=== PATIENT | female | born 1965 | race Hispanic/Latino ===

== ENCOUNTER 2019-06-19 23:57 | Emergency (ER) | payer OTHER ==
[~2019-06-19] VITALS: Ht 149.9 cm; Wt 108.9 kg
--- OUTSIDE RECORDS SUMMARY | 2019-06-20 00:02 | XMS REPORT ---
Author Author [facility] Address Unknown Phone Unavailable Care Team Providers Care Fire Extinguisher Sprinkler Inspector Name Role Phone QUIANA LENZ Unavailable Unavailable Payers Payer Name Policy Type Policy Number Effective Date Expiration Date Problems This patient has no known problems. Allergies, Adverse Reactions, Alerts Allergy Name Allergy Type Status Severity Reaction(s) Onset Date Inactive Date Treating Clinician Comments No Known Contrast Allergies DA Active U 2003-11-22 00:00:00 No Known Drug Allergies DA Active U 2003-11-22 00:00:00 No Known Food Allergies DA Active U 2003-11-22 00:00:00 No Known Other Allergies DA Active U 2003-11-22 00:00:00 Medications This patient has no known medications. Encounters Start Date/Time End Date/Time Encounter Type Admission Type Attending Clinicians Care Facility Care Department Encounter ID 2019-04-09 19:32:00 2019-04-09 15:28:00 Inpatient E [facility] [id number] Results Test Description Test Time Test Comments Text Results Atomic Results Result Comments TISSUE EXAM 2016-11-10 13:28:00 Surgical Pathology Report Case: [id number] Authorizing Provider: Camron Lenz MD Collected: 11/03/2016 1330 Ord ering Location: [facility] Received: 11/03/2016 1530 PERIOPERATIVE SERVICES Pathologist: Kahlil Griffin MD Specimens: A) - Aortic Valve, AORTIC VALVE LEAFLETS B) - Aorta, AORTIC WALL 8. HEART, AORTIC VALVE, VALVULECTOMY:NODULAR CALCIFIC ATHEROSCLEROTIC THICKENINGB. AORTA, DESIGNATED "WALL", ANEURYSMECTOMY:SEVERE CYSTIC MEDIAL MUCOID DEGENERATION 54091; [id number]; [id number], ASA. Aortic valve leafletsB. Aortic wallSpecimen A: Received in saline labeled "aortic valve" are irregular, spain-white to yellow-guthrie, rubbery portions of cardiac valve measuring 4.0 x 4.0 x 1.0 cm in aggregate. Sectioning reveals dense calcification. Health Service Worker sections are submitted in cassette A1 for decalcification.Specimen B: Received in saline labeled "aorta", description "aortic wall" is a 2.5 x 2.0 x 0.2 cm, spain-white to yellow-guthrie, irregular, rubbery portion of fibroelastic soft tissue. Sectioning reveals no discrete masses. Health Service Worker sections are submitted in cassette B1. [place]/Cem Leal, performed CBC W/PLT COUNT & AUTO DIFFERENTIAL 2016-11-10 11:39:00 WHITE BLOOD CELL COUNT (BEAKER) (test byth=959) 9.3 K/ L 3.5-10.5 RED BLOOD CELL COUNT (BEAKER) (test inhl=754) 2.61 M/ L 3.93-5.22 HEMOGLOBIN (BEAKER) (test wbmk=864) 8.1 GM/DL 11.2-15.7 HEMATOCRIT (BEAKER) (test eovc=590) 25.4 % 34.1-44.9 MEAN CORPUSCULAR VOLUME (BEAKER) (test nsju=279) 97.3 fL 79.4-94.8 MEAN CORPUSCULAR HEMOGLOBIN (BEAKER) (test qepn=905) 31.0 pg 25.6-32.2 MEAN CORPUSCULAR HEMOGLOBIN CONC (BEAKER) (test ehef=176) 31.9 GM/DL 32.2-35.5 RED CELL DISTRIBUTION WIDTH (BEAKER) (test ybgj=406) 14.3 % 11.7-14.4 PLATELET COUNT (BEAKER) (test eexf=150) 315 K/CU MM 150-450 MEAN PLATELET VOLUME (BEAKER) (test hqvu=536) 11.4 fL 9.4-12.3 NUCLEATED RED BLOOD CELLS (BEAKER) (test bugo=854) 1 /100 WBC 0-0 NEUTROPHILS RELATIVE PERCENT (BEAKER) (test itgm=027) 67 % LYMPHOCYTES RELATIVE PERCENT (BEAKER) (test qlvy=501) 22 % MONOCYTES RELATIVE PERCENT (BEAKER) (test kqhm=788) 7 % EOSINOPHILS RELATIVE PERCENT (BEAKER) (test zhir=531) 3 % BASOPHILS RELATIVE PERCENT (BEAKER) (test kezp=532) 0 % NEUTROPHILS ABSOLUTE COUNT (BEAKER) (test zitm=579) 6.19 K/ L 1.56-6.13 LYMPHOCYTES ABSOLUTE COUNT (BEAKER) (test auzi=117) 2.09 K/ L 1.18-3.74 MONOCYTES ABSOLUTE COUNT (BEAKER) (test hvlu=963) 0.61 K/ L 0.24-0.36 EOSINOPHILS ABSOLUTE COUNT (BEAKER) (test krnz=607) 0.27 K/ L 0.04-0.36 BASOPHILS ABSOLUTE COUNT (BEAKER) (test iwdu=483) 0.03 K/ L 0.01-0.08 IMMATURE GRANULOCYTES-RELATIVE PERCENT (BEAKER) (test ggos=5676) 1 % 0-1 [id number] 07:06:00* Test Item Value Reference Range Comments FERRITIN (BEAKER) (test xlwz=837) 156 ng/mL 5-275 Effective 02/27/2014: Reference Range ChangeNew: Male 5-275 Previous: Male 22-322 Female 5-275 Female 10-291 VITAMIN B12 AND FOLATE 2016-11-10 07:06:00* Test Item Value Reference Range Comments VITAMIN B12 (BEAKER) (test vjoj=228) 285 pg/mL 213-816 FOLATE (BEAKER) (test ozwa=647) 11.3 ng/mL >=7.0 Effective 02/27/2014: Folate Reference Range ChangeNew: >=7.0 Previous: >=5.4 [id number] 06:44:00* Test Item Value Reference Range Comments MAGNESIUM (BEAKER) (test okrp=833) 2.1 mg/dL 1.6-2.6 BASIC METABOLIC [id number] 06:44:00* Test Item Value Reference Range Comments SODIUM (BEAKER) (test lxsc=264) 137 meq/L 136-145 POTASSIUM (BEAKER) (test blek=730) 3.7 meq/L 3.5-5.1 CHLORIDE (BEAKER) (test knes=418) 103 meq/L 98-107 CO2 (BEAKER) (test vsrr=503) 27 meq/L 22-29 BLOOD UREA NITROGEN (BEAKER) (test nayw=408) 9 mg/dL 7-21 CREATININE (BEAKER) (test yhew=355) 0.67 mg/dL 0.57-1.25 GLUCOSE RANDOM (BEAKER) (test rzvn=917) 99 mg/dL 70-105 CALCIUM (BEAKER) (test nsli=864) 8.5 mg/dL 8.4-10.2 EGFR (BEAKER) (test lvco=5157) 92 mL/min/1.73 sq m ESTIMATED GFR IS NOT ACCURATE CREATININE CLEARANCE IN PREDICTING GLOMERULAR FILTRATION RATE. ESTIMATED GFR IS NOT APPLICABLE FOR DIALYSIS PATIENTS. IRON, [id number] 06:40:00* Test Item Value Reference Range Comments IRON (BEAKER) (test azav=171) 39 ug/dL 40-160 IRON, TIBC, % SAT. (WITHOUT FERRITIN)2016-11-10 06:40:00* Test Item Value Reference Range Comments IRON (BEAKER) (test ktzv=739) 39 ug/dL 40-160 TOTAL IRON BINDING CAPACITY (BEAKER) (test qmef=979) 304 ug/dL 250-450 IRON % SATURATION (2) (BEAKER) (test ypji=1592) 13 % 20-55 PROTHROMBIN [id number] 06:16:00* Test Item Value Reference Range Comments PROTIME (BEAKER) (test rlpv=014) 23.0 seconds 11.7-14.7 INR (BEAKER) (test yerb=606) 2.0 <=5.9 RECOMMENDED COUMADIN/WARFARIN INR THERAPY RANGESSTANDARD DOSE: 2.0 - 3.0 Inclu hilda: PROPHYLAXIS for venous thrombosis, systemic embolization; TREATMENT for cassi ous thrombosis and/or pulmonary embolus.HIGH RISK: Target INR is 2.5-3.5 for pat ients with mechanical heart valves.While on warfarin.CBC W/PLT COUNT & AUTO [id number] 12:36:00* Test Item Value Reference Range Comments WHITE BLOOD CELL COUNT (BEAKER) (test vnio=402) 8.1 K/ L 3.5-10.5 RED BLOOD CELL COUNT (BEAKER) (test lidw=260) 2.43 M/ L 3.93-5.22 HEMOGLOBIN (BEAKER) (test qzfz=172) 7.6 GM/DL 11.2-15.7 HEMATOCRIT (BEAKER) (test xjnn=391) 23.5 % 34.1-44.9 MEAN CORPUSCULAR VOLUME (BEAKER) (test qthx=434) 96.7 fL 79.4-94.8 MEAN CORPUSCULAR HEMOGLOBIN (BEAKER) (test shqo=767) 31.3 pg 25.6-32.2 MEAN CORPUSCULAR HEMOGLOBIN CONC (BEAKER) (test fxyv=364) 32.3 GM/DL 32.2-35.5 RED CELL DISTRIBUTION WIDTH (BEAKER) (test fomf=221) 14.2 % 11.7-14.4 PLATELET COUNT (BEAKER) (test vhzn=919) 261 K/CU MM 150-450 MEAN PLATELET VOLUME (BEAKER) (test qrym=114) 12.0 fL 9.4-12.3 NUCLEATED RED BLOOD CELLS (BEAKER) (test izmf=375) 1 /100 WBC 0-0 IMMATURE GRANULOCYTES-RELATIVE PERCENT (BEAKER) (test esec=0391) 1 % 0-1 (MANUAL DIFFERENTIAL)2016-11-09 12:36:00* Test Item Value Reference Range Comments NEUTROPHILS - REL (DIFF) (BEAKER) (test zoro=9221) 64 % LYMPHOCYTES - REL (DIFF) (BEAKER) (test jupj=5046) 24 % MONOCYTES - REL (DIFF) (BEAKER) (test asoy=4283) 8 % EOSINOPHILS - REL (DIFF) (BEAKER) (test prsi=7250) 3 % BASOPHILS - REL (DIFF) (BEAKER) (test lbec=5638) 1 % NEUTROPHILS - ABS (DIFF) (BEAKER) (test vpsv=8715) 5.18 K/ L 1.80-8.00 LYMPHOCYTES - ABS (DIFF) (BEAKER) (test ihhj=0892) 1.94 K/ L 1.48-4.50 MONOCYTES - ABS (DIFF) (BEAKER) (test wloq=4649) 0.65 K/ L 0.00-1.30 EOSINOPHILS - ABS (DIFF) (BEAKER) (test xycl=8054) 0.24 K/ L 0.00-0.50 BASOPHILS - ABS (DIFF) (BEAKER) (test zppd=7081) 0.08 K/ L 0.00-0.20 TOTAL COUNTED (BEAKER) (test iluk=0900) 100 WBC MORPHOLOGY (BEAKER) (test hvme=463) Normal LARGE PLT(BEAKER) (test trmw=4017) Present POLYCHROMATOPHILLIC RBCS(BEAKER) (test pcnu=145) 1+ few [id number] 07:33:00* Test Item Value Reference Range Comments PHOSPHORUS (BEAKER) (test tirp=537) 3.7 mg/dL 2.3-4.7 [id number] 07:33:00* Test Item Value Reference Range Comments MAGNESIUM (BEAKER) (test kmwo=834) 2.0 mg/dL 1.6-2.6 BASIC METABOLIC [id number] 07:33:00* Test Item Value Reference Range Comments SODIUM (BEAKER) (test uenj=461) 139 meq/L 136-145 POTASSIUM (BEAKER) (test uyjm=034) 3.6 meq/L 3.5-5.1 CHLORIDE (BEAKER) (test nuer=600) 104 meq/L 98-107 CO2 (BEAKER) (test svwy=941) 28 meq/L 22-29 BLOOD UREA NITROGEN (BEAKER) (test nend=902) 9 mg/dL 7-21 CREATININE (BEAKER) (test bpkv=937) 0.65 mg/dL 0.57-1.25 GLUCOSE RANDOM (BEAKER) (test vdcy=945) 153 mg/dL 70-105 CALCIUM (BEAKER) (test gupx=322) 8.8 mg/dL 8.4-10.2 EGFR (BEAKER) (test rtoi=3398) 95 mL/min/1.73 sq m ESTIMATED GFR IS NOT ACCURATE CREATININE CLEARANCE IN PREDICTING GLOMERULAR FILTRATION RATE. ESTIMATED GFR IS NOT APPLICABLE FOR DIALYSIS PATIENTS. POCT-GLUCOSE [id number] 07:15:00* Test Item Value Reference Range Comments POC-GLUCOSE METER (BEAKER) (test lqeh=2222) 106 mg/dL 70-110 TESTED AT [address] [address] B-TYPE NATRIURETIC FACTOR (BNP)2016-11-09 06:39:00* Test Item Value Reference Range Comments B-TYPE NATRIURETIC PEPTIDE (BEAKER) (test izql=839) 160 pg/mL 0-100 PROTHROMBIN [id number] 05:53:00* Test Item Value Reference Range Comments PROTIME (BEAKER) (test smuo=468) 20.1 seconds 11.7-14.7 INR (BEAKER) (test fjbu=161) 1.7 <=5.9 RECOMMENDED COUMADIN/WARFARIN INR THERAPY RANGESSTANDARD DOSE: 2.0 - 3.0 Inclu hilda: PROPHYLAXIS for venous thrombosis, systemic embolization; TREATMENT for cassi ous thrombosis and/or pulmonary embolus.HIGH RISK: Target INR is 2.5-3.5 for pat ients with mechanical heart valves.While on warfarin.POCT-GLUCOSE METER 2016-11-08 20:47:00* Test Item Value Reference Range Comments POC-GLUCOSE METER (BEAKER) (test ycsc=1721) 115 mg/dL 70-110 TESTED AT [address] [address] POCT-GLUCOSE [id number] 16:20:00* Test Item Value Reference Range Comments POC-GLUCOSE METER (BEAKER) (test gbzu=7228) 110 mg/dL 70-110 TESTED AT [address] [address] POCT-GLUCOSE [id number] 11:10:00* Test Item Value Reference Range Comments POC-GLUCOSE METER (BEAKER) (test gscs=9628) 150 mg/dL 70-110 TESTED AT [address] [address] BASIC METABOLIC [id number] 10:05:00* Test Item Value Reference Range Comments SODIUM (BEAKER) (test kamb=161) 137 meq/L 136-145 POTASSIUM (BEAKER) (test qavg=193) 3.6 meq/L 3.5-5.1 CHLORIDE (BEAKER) (test uszh=800) 101 meq/L 98-107 CO2 (BEAKER) (test flxw=784) 29 meq/L 22-29 BLOOD UREA NITROGEN (BEAKER) (test mpgy=113) 9 mg/dL 7-21 CREATININE (BEAKER) (test nocu=530) 0.68 mg/dL 0.57-1.25 GLUCOSE RANDOM (BEAKER) (test xkbs=629) 125 mg/dL 70-105 CALCIUM (BEAKER) (test imem=282) 8.8 mg/dL 8.4-10.2 EGFR (BEAKER) (test mzhv=6957) 91 mL/min/1.73 sq m ESTIMATED GFR IS NOT ACCURATE CREATININE CLEARANCE IN PREDICTING GLOMERULAR FILTRATION RATE. ESTIMATED GFR IS NOT APPLICABLE FOR DIALYSIS PATIENTS. POCT-GLUCOSE [id number] 08:21:00* Test Item Value Reference Range Comments POC-GLUCOSE METER (BEAKER) (test ehnd=9590) 136 mg/dL 70-110 TESTED AT [facility] [address] [facility] [address] POCT-GLUCOSE [id number] 08:21:00* Test Item Value Reference Range Comments POC-GLUCOSE METER (BEAKER) (test ynsl=7924) 100 mg/dL 70-110 TESTED AT [address] [address] PROTHROMBIN [id number] 07:30:00* Test Item Value Reference Range Comments PROTIME (BEAKER) (test pjiy=129) 18.1 seconds 11.7-14.7 INR (BEAKER) (test xnct=914) 1.5 <=5.9 RECOMMENDED COUMADIN/WARFARIN INR THERAPY RANGESSTANDARD DOSE: 2.0 - 3.0 Inclu hilda: PROPHYLAXIS for venous thrombosis, systemic embolization; TREATMENT for cassi ous thrombosis and/or pulmonary embolus.HIGH RISK: Target INR is 2.5-3.5 for pat ients with mechanical heart valves.POCT-GLUCOSE [id number] 07:23:00* Test Item Value Reference Range Comments POC-GLUCOSE METER (BEAKER) (test vjfw=3278) 115 mg/dL 70-110 TESTED AT [address] [address] CBC W/PLT COUNT & AUTO [id number] 14:45:00* Test Item Value Reference Range Comments WHITE BLOOD CELL COUNT (BEAKER) (test rzcj=309) 8.5 K/ L 3.5-10.5 RED BLOOD CELL COUNT (BEAKER) (test wpvi=009) 2.85 M/ L 3.93-5.22 HEMOGLOBIN (BEAKER) (test fblx=832) 8.9 GM/DL 11.2-15.7 HEMATOCRIT (BEAKER) (test eglg=905) 27.0 % 34.1-44.9 MEAN CORPUSCULAR VOLUME (BEAKER) (test mmrs=033) 94.7 fL 79.4-94.8 MEAN CORPUSCULAR HEMOGLOBIN (BEAKER) (test jrca=351) 31.2 pg 25.6-32.2 MEAN CORPUSCULAR HEMOGLOBIN CONC (BEAKER) (test bwql=961) 33.0 GM/DL 32.2-35.5 RED CELL DISTRIBUTION WIDTH (BEAKER) (test xldc=963) 13.9 % 11.7-14.4 PLATELET COUNT (BEAKER) (test tsgb=352) 203 K/CU MM 150-450 MEAN PLATELET VOLUME (BEAKER) (test eidi=091) 11.4 fL 9.4-12.3 NUCLEATED RED BLOOD CELLS (BEAKER) (test rgue=017) 1 /100 WBC 0-0 NEUTROPHILS RELATIVE PERCENT (BEAKER) (test qnya=784) 73 % LYMPHOCYTES RELATIVE PERCENT (BEAKER) (test baim=242) 17 % MONOCYTES RELATIVE PERCENT (BEAKER) (test frnv=984) 7 % EOSINOPHILS RELATIVE PERCENT (BEAKER) (test ahyk=722) 1 % BASOPHILS RELATIVE PERCENT (BEAKER) (test lvfz=733) 1 % NEUTROPHILS ABSOLUTE COUNT (BEAKER) (test cwta=010) 6.24 K/ L 1.56-6.13 LYMPHOCYTES ABSOLUTE COUNT (BEAKER) (test wrfa=004) 1.48 K/ L 1.18-3.74 MONOCYTES ABSOLUTE COUNT (BEAKER) (test tvtj=796) 0.60 K/ L 0.24-0.36 EOSINOPHILS ABSOLUTE COUNT (BEAKER) (test ockn=126) 0.12 K/ L 0.04-0.36 BASOPHILS ABSOLUTE COUNT (BEAKER) (test ljlb=624) 0.05 K/ L 0.01-0.08 IMMATURE GRANULOCYTES-RELATIVE PERCENT (BEAKER) (test qbsw=9291) 1 % 0-1 POCT-GLUCOSE [id number] 11:46:00* Test Item Value Reference Range Comments POC-GLUCOSE METER (BEAKER) (test zkfb=8581) 149 mg/dL 70-110 TESTED AT [facility] [address] [facility] [address] B-TYPE NATRIURETIC FACTOR (BNP)2016-11-07 10:21:00* Test Item Value Reference Range Comments B-TYPE NATRIURETIC PEPTIDE (BEAKER) (test jxii=884) 189 pg/mL 0-100 [id number] 10:19:00* Test Item Value Reference Range Comments PHOSPHORUS (BEAKER) (test hrjp=234) 2.5 mg/dL 2.3-4.7 [id number] 10:19:00* Test Item Value Reference Range Comments MAGNESIUM (BEAKER) (test mfon=298) 2.2 mg/dL 1.6-2.6 BASIC METABOLIC [id number] 10:19:00* Test Item Value Reference Range Comments SODIUM (BEAKER) (test cntc=365) 137 meq/L 136-145 POTASSIUM (BEAKER) (test jqqd=867) 3.5 meq/L 3.5-5.1 CHLORIDE (BEAKER) (test hfem=443) 101 meq/L 98-107 CO2 (BEAKER) (test yuzq=012) 29 meq/L 22-29 BLOOD UREA NITROGEN (BEAKER) (test znmb=556) 8 mg/dL 7-21 CREATININE (BEAKER) (test rboc=511) 0.68 mg/dL 0.57-1.25 GLUCOSE RANDOM (BEAKER) (test chok=104) 118 mg/dL 70-105 CALCIUM (BEAKER) (test hnrs=686) 8.7 mg/dL 8.4-10.2 EGFR (BEAKER) (test lyzz=6732) 91 mL/min/1.73 sq m ESTIMATED GFR IS NOT ACCURATE CREATININE CLEARANCE IN PREDICTING GLOMERULAR FILTRATION RATE. ESTIMATED GFR IS NOT APPLICABLE FOR DIALYSIS PATIENTS. POCT-GLUCOSE [id number] 07:13:00* Test Item Value Reference Range Comments POC-GLUCOSE METER (BEAKER) (test hegh=7728) 114 mg/dL 70-110 TESTED AT [address] [address] POCT-GLUCOSE [id number] 23:33:00* Test Item Value Reference Range Comments POC-GLUCOSE METER (BEAKER) (test azgc=3739) 109 mg/dL 70-110 TESTED AT [address] [address] POCT-GLUCOSE [id number] 17:42:00* Test Item Value Reference Range Comments POC-GLUCOSE METER (BEAKER) (test pqbu=6154) 145 mg/dL 70-110 TESTED AT [address] [address] POCT-GLUCOSE [id number] 13:26:00* Test Item Value Reference Range Comments POC-GLUCOSE METER (BEAKER) (test guxo=0895) 123 mg/dL 70-110 TESTED AT [facility] [address] [facility] [address] PROTHROMBIN [id number] 11:40:00* Test Item Value Reference Range Comments PROTIME (BEAKER) (test heud=759) 15.3 seconds 11.7-14.7 INR (BEAKER) (test wowi=324) 1.2 <=5.9 RECOMMENDED COUMADIN/WARFARIN INR THERAPY RANGESSTANDARD DOSE: 2.0 - 3.0 Inclu hilda: PROPHYLAXIS for venous thrombosis, systemic embolization; TREATMENT for cassi ous thrombosis and/or pulmonary embolus.HIGH RISK: Target INR is 2.5-3.5 for pat ients with mechanical heart valves.Morning lab sample missing for this testPOCT- GLUCOSE [id number] 08:21:00* Test Item Value Reference Range Comments POC-GLUCOSE METER ([place]) (test tzns=4534) 121 mg/dL 70-110 TESTED AT [facility] [address] [facility] [address] [id number] 05:38:00* Test Item Value Reference Range Comments PHOSPHORUS (BEAKER) (test afin=482) 2.3 mg/dL 2.3-4.7 [id number] 05:38:00* Test Item Value Reference Range Comments MAGNESIUM (BEAKER) (test eici=162) 2.0 mg/dL 1.6-2.6 BASIC METABOLIC [id number] 05:38:00* Test Item Value Reference Range Comments SODIUM (BEAKER) (test ejoo=999) 135 meq/L 136-145 POTASSIUM (BEAKER) (test ecmx=847) 3.7 meq/L 3.5-5.1 CHLORIDE (BEAKER) (test kyto=657) 100 meq/L 98-107 CO2 (BEAKER) (test thin=486) 27 meq/L 22-29 BLOOD UREA NITROGEN (BEAKER) (test jzft=956) 11 mg/dL 7-21 CREATININE (BEAKER) (test hpkf=792) 0.66 mg/dL 0.57-1.25 GLUCOSE RANDOM (BEAKER) (test ohcp=490) 109 mg/dL 70-105 CALCIUM (BEAKER) (test zbnf=467) 8.0 mg/dL 8.4-10.2 EGFR (BEAKER) (test quoc=6544) 94 mL/min/1.73 sq m ESTIMATED GFR IS NOT ACCURATE CREATININE CLEARANCE IN PREDICTING GLOMERULAR FILTRATION RATE. ESTIMATED GFR IS NOT APPLICABLE FOR DIALYSIS PATIENTS. CBC W/PLT COUNT & AUTO [id number] 05:16:00* Test Item Value Reference Range Comments WHITE BLOOD CELL COUNT (BEAKER) (test mhwo=200) 8.8 K/ L 3.5-10.5 RED BLOOD CELL COUNT (BEAKER) (test ivru=979) 2.62 M/ L 3.93-5.22 HEMOGLOBIN (BEAKER) (test audv=267) 8.0 GM/DL 11.2-15.7 HEMATOCRIT (BEAKER) (test tdyy=195) 24.9 % 34.1-44.9 MEAN CORPUSCULAR VOLUME (BEAKER) (test inhq=340) 95.0 fL 79.4-94.8 MEAN CORPUSCULAR HEMOGLOBIN (BEAKER) (test reov=110) 30.5 pg 25.6-32.2 MEAN CORPUSCULAR HEMOGLOBIN CONC (BEAKER) (test kmht=393) 32.1 GM/DL 32.2-35.5 RED CELL DISTRIBUTION WIDTH (BEAKER) (test vrhl=795) 13.9 % 11.7-14.4 PLATELET COUNT (BEAKER) (test yjmn=708) 141 K/CU MM 150-450 MEAN PLATELET VOLUME (BEAKER) (test svnu=571) 13.5 fL 9.4-12.3 NUCLEATED RED BLOOD CELLS (BEAKER) (test vpfr=511) 0 /100 WBC 0-0 NEUTROPHILS RELATIVE PERCENT (BEAKER) (test uhhi=985) 74 % LYMPHOCYTES RELATIVE PERCENT (BEAKER) (test eqha=670) 18 % MONOCYTES RELATIVE PERCENT (BEAKER) (test nutd=282) 7 % EOSINOPHILS RELATIVE PERCENT (BEAKER) (test xczd=168) 1 % BASOPHILS RELATIVE PERCENT (BEAKER) (test lqig=239) 0 % NEUTROPHILS ABSOLUTE COUNT (BEAKER) (test bese=687) 6.46 K/ L 1.56-6.13 LYMPHOCYTES ABSOLUTE COUNT (BEAKER) (test zljz=790) 1.58 K/ L 1.18-3.74 MONOCYTES ABSOLUTE COUNT (BEAKER) (test uwkw=342) 0.61 K/ L 0.24-0.36 EOSINOPHILS ABSOLUTE COUNT (BEAKER) (test tyla=636) 0.04 K/ L 0.04-0.36 BASOPHILS ABSOLUTE COUNT (BEAKER) (test jkql=753) 0.02 K/ L 0.01-0.08 IMMATURE GRANULOCYTES-RELATIVE PERCENT (BEAKER) (test lkvm=5912) 1 % 0-1 POCT-GLUCOSE [id number] 00:08:00* Test Item Value Reference Range Comments POC-GLUCOSE METER (BEAKER) (test qxxy=0424) 114 mg/dL 70-110 TESTED AT [address] [address] POCT-GLUCOSE [id number] 21:22:00* Test Item Value Reference Range Comments POC-GLUCOSE METER (BEAKER) (test ayuq=6472) 142 mg/dL 70-110 TESTED AT [address] [address] POCT-GLUCOSE [id number] 18:13:00* Test Item Value Reference Range Comments POC-GLUCOSE METER (BEAKER) (test xlvv=5903) 129 mg/dL 70-110 TESTED AT [address] [address] POCT-GLUCOSE [id number] 13:11:00* Test Item Value Reference Range Comments POC-GLUCOSE METER (BEAKER) (test tpfa=6255) 131 mg/dL 70-110 TESTED AT [address] [address] POCT-GLUCOSE [id number] 06:23:00* Test Item Value Reference Range Comments POC-GLUCOSE METER (BEAKER) (test dymz=6157) 133 mg/dL 70-110 TESTED AT [address] [address] [id number] 04:41:00* Test Item Value Reference Range Comments PHOSPHORUS (BEAKER) (test kjzh=743) 3.1 mg/dL 2.3-4.7 [id number] 04:41:00* Test Item Value Reference Range Comments MAGNESIUM (BEAKER) (test guwv=304) 2.2 mg/dL 1.6-2.6 BASIC METABOLIC [id number] 04:41:00* Test Item Value Reference Range Comments SODIUM (BEAKER) (test havi=966) 137 meq/L 136-145 POTASSIUM (BEAKER) (test paxg=312) 4.3 meq/L 3.5-5.1 CHLORIDE (BEAKER) (test xajp=978) 104 meq/L 98-107 CO2 (BEAKER) (test tdtb=058) 28 meq/L 22-29 BLOOD UREA NITROGEN (BEAKER) (test ktfz=626) 14 mg/dL 7-21 CREATININE (BEAKER) (test uisw=581) 0.73 mg/dL 0.57-1.25 GLUCOSE RANDOM (BEAKER) (test hqbs=585) 115 mg/dL 70-105 CALCIUM (BEAKER) (test lvjd=308) 8.1 mg/dL 8.4-10.2 EGFR (BEAKER) (test xrml=7184) 83 mL/min/1.73 sq m ESTIMATED GFR IS NOT ACCURATE CREATININE CLEARANCE IN PREDICTING GLOMERULAR FILTRATION RATE. ESTIMATED GFR IS NOT APPLICABLE FOR DIALYSIS PATIENTS. CBC W/PLT COUNT & AUTO [id number] 04:29:00* Test Item Value Reference Range Comments WHITE BLOOD CELL COUNT (BEAKER) (test bscj=220) 9.6 K/ L 3.5-10.5 RED BLOOD CELL COUNT (BEAKER) (test mviz=425) 2.71 M/ L 3.93-5.22 HEMOGLOBIN (BEAKER) (test fxwr=256) 8.5 GM/DL 11.2-15.7 HEMATOCRIT (BEAKER) (test gfwv=325) 26.1 % 34.1-44.9 MEAN CORPUSCULAR VOLUME (BEAKER) (test bqov=786) 96.3 fL 79.4-94.8 MEAN CORPUSCULAR HEMOGLOBIN (BEAKER) (test jowy=479) 31.4 pg 25.6-32.2 MEAN CORPUSCULAR HEMOGLOBIN CONC (BEAKER) (test niql=330) 32.6 GM/DL 32.2-35.5 RED CELL DISTRIBUTION WIDTH (BEAKER) (test znoy=967) 14.4 % 11.7-14.4 PLATELET COUNT (BEAKER) (test jyto=938) 126 K/CU MM 150-450 MEAN PLATELET VOLUME (BEAKER) (test hrzb=567) 12.5 fL 9.4-12.3 NUCLEATED RED BLOOD CELLS (BEAKER) (test thhk=518) 0 /100 WBC 0-0 NEUTROPHILS RELATIVE PERCENT (BEAKER) (test nrce=365) 76 % LYMPHOCYTES RELATIVE PERCENT (BEAKER) (test bmxh=678) 17 % MONOCYTES RELATIVE PERCENT (BEAKER) (test obbv=827) 6 % EOSINOPHILS RELATIVE PERCENT (BEAKER) (test qklq=986) 0 % BASOPHILS RELATIVE PERCENT (BEAKER) (test njwr=051) 0 % NEUTROPHILS ABSOLUTE COUNT (BEAKER) (test pkon=504) 7.34 K/ L 1.56-6.13 LYMPHOCYTES ABSOLUTE COUNT (BEAKER) (test niwj=891) 1.62 K/ L 1.18-3.74 MONOCYTES ABSOLUTE COUNT (BEAKER) (test ebns=997) 0.61 K/ L 0.24-0.36 EOSINOPHILS ABSOLUTE COUNT (BEAKER) (test dudt=078) 0.01 K/ L 0.04-0.36 BASOPHILS ABSOLUTE COUNT (BEAKER) (test kqts=732) 0.01 K/ L 0.01-0.08 IMMATURE GRANULOCYTES-RELATIVE PERCENT (BEAKER) (test nbrf=6614) 0 % 0-1 POCT-GLUCOSE [id number] 18:00:00* Test Item Value Reference Range Comments POC-GLUCOSE METER (BEAKER) (test ejhb=0249) 120 mg/dL 70-110 TESTED AT [address] [address] HGB/HCT (H&H) - STAT [id number] 17:53:00* Test Item Value Reference Range Comments HEMOGLOBIN (BEAKER) (test ewzr=963) 10.0 g/dL 12.0-15.0 HEMATOCRIT (BEAKER) (test mxug=433) 29.0 % 36.0-45.0 POCT-GLUCOSE [id number] 12:58:00* Test Item Value Reference Range Comments POC-GLUCOSE METER (BEAKER) (test untu=4813) 124 mg/dL 70-110 TESTED AT [address] [address] POCT-GLUCOSE [id number] 10:46:00* Test Item Value Reference Range Comments POC-GLUCOSE METER (BEAKER) (test bxzk=7807) 122 mg/dL 70-110 TESTED AT [address] [address] POCT-GLUCOSE [id number] 08:03:00* Test Item Value Reference Range Comments POC-GLUCOSE METER (BEAKER) (test bkmn=4644) 133 mg/dL 70-110 TESTED AT [facility] [address] [facility] [address] POCT-GLUCOSE [id number] 05:36:00* Test Item Value Reference Range Comments POC-GLUCOSE METER (BEAKER) (test yhzr=4191) 124 mg/dL 70-110 TESTED AT [facility] [address] [facility] [address] BASIC METABOLIC [id number] 04:36:00* Test Item Value Reference Range Comments SODIUM (BEAKER) (test epgw=095) 139 meq/L 136-145 POTASSIUM (BEAKER) (test kdyg=026) 4.4 meq/L 3.5-5.1 CHLORIDE (BEAKER) (test xcsa=507) 112 meq/L 98-107 CO2 (BEAKER) (test hwby=258) 22 meq/L 22-29 BLOOD UREA NITROGEN (BEAKER) (test alzt=950) 9 mg/dL 7-21 CREATININE (BEAKER) (test mecy=868) 0.73 mg/dL 0.57-1.25 GLUCOSE RANDOM (BEAKER) (test odid=312) 119 mg/dL 70-105 CALCIUM (BEAKER) (test uyzt=039) 7.8 mg/dL 8.4-10.2 EGFR (BEAKER) (test nuty=9252) 83 mL/min/1.73 sq m ESTIMATED GFR IS NOT ACCURATE CREATININE CLEARANCE IN PREDICTING GLOMERULAR FILTRATION RATE. ESTIMATED GFR IS NOT APPLICABLE FOR DIALYSIS PATIENTS. [id number] 04:33:00* Test Item Value Reference Range Comments PHOSPHORUS (BEAKER) (test kavk=909) 3.8 mg/dL 2.3-4.7 [id number] 04:33:00* Test Item Value Reference Range Comments MAGNESIUM (BEAKER) (test kspr=459) 1.8 mg/dL 1.6-2.6 CBC W/PLT COUNT & AUTO [id number] 04:13:00* Test Item Value Reference Range Comments WHITE BLOOD CELL COUNT (BEAKER) (test kacw=411) 9.7 K/ L 3.5-10.5 RED BLOOD CELL COUNT (BEAKER) (test dwzg=665) 2.90 M/ L 3.93-5.22 HEMOGLOBIN (BEAKER) (test ucpa=219) 9.2 GM/DL 11.2-15.7 HEMATOCRIT (BEAKER) (test elos=527) 28.0 % 34.1-44.9 MEAN CORPUSCULAR VOLUME (BEAKER) (test vqza=654) 96.6 fL 79.4-94.8 MEAN CORPUSCULAR HEMOGLOBIN (BEAKER) (test vdni=383) 31.7 pg 25.6-32.2 MEAN CORPUSCULAR HEMOGLOBIN CONC (BEAKER) (test upze=220) 32.9 GM/DL 32.2-35.5 RED CELL DISTRIBUTION WIDTH (BEAKER) (test epfa=038) 14.1 % 11.7-14.4 PLATELET COUNT (BEAKER) (test vbqh=420) 146 K/CU MM 150-450 MEAN PLATELET VOLUME (BEAKER) (test jstc=276) 12.1 fL 9.4-12.3 NUCLEATED RED BLOOD CELLS (BEAKER) (test ulgx=245) 0 /100 WBC 0-0 NEUTROPHILS RELATIVE PERCENT (BEAKER) (test yush=919) 86 % LYMPHOCYTES RELATIVE PERCENT (BEAKER) (test jmbc=045) 6 % MONOCYTES RELATIVE PERCENT (BEAKER) (test ujsd=525) 7 % EOSINOPHILS RELATIVE PERCENT (BEAKER) (test pzcc=316) 0 % BASOPHILS RELATIVE PERCENT (BEAKER) (test ubhn=326) 0 % NEUTROPHILS ABSOLUTE COUNT (BEAKER) (test bzjl=730) 8.31 K/ L 1.56-6.13 LYMPHOCYTES ABSOLUTE COUNT (BEAKER) (test zepl=053) 0.62 K/ L 1.18-3.74 MONOCYTES ABSOLUTE COUNT (BEAKER) (test opjm=423) 0.69 K/ L 0.24-0.36 EOSINOPHILS ABSOLUTE COUNT (BEAKER) (test wygl=995) 0.01 K/ L 0.04-0.36 BASOPHILS ABSOLUTE COUNT (BEAKER) (test tsjb=111) 0.02 K/ L 0.01-0.08 IMMATURE GRANULOCYTES-RELATIVE PERCENT (BEAKER) (test uhuf=9236) 0 % 0-1 CALCIUM, [id number] 04:06:00* Test Item Value Reference Range Comments CALCIUM IONIZED (BEAKER) (test jpgi=667) 1.14 mmol/L 1.12-1.27 PH, BLOOD (BEAKER) (test kfhh=0400) 7.35 POCT-GLUCOSE [id number] 03:45:00* Test Item Value Reference Range Comments POC-GLUCOSE METER (BEAKER) (test ffej=9661) 126 mg/dL 70-110 TESTED AT [address] [address] POCT-GLUCOSE [id number] 02:20:00* Test Item Value Reference Range Comments POC-GLUCOSE METER (BEAKER) (test envr=1405) 138 mg/dL 70-110 TESTED AT [address] [address] POCT-GLUCOSE [id number] 02:20:00* Test Item Value Reference Range Comments POC-GLUCOSE METER (BEAKER) (test joxk=5882) 128 mg/dL 70-110 TESTED AT [address] [address] POCT-GLUCOSE [id number] 22:03:00* Test Item Value Reference Range Comments POC-GLUCOSE METER (BEAKER) (test khdf=6477) 120 mg/dL 70-110 TESTED AT [address] [address] POCT-GLUCOSE [id number] 22:03:00* Test Item Value Reference Range Comments POC-GLUCOSE METER (BEAKER) (test zdfz=0139) 143 mg/dL 70-110 TESTED AT [address] [address] POCT-GLUCOSE [id number] 22:03:00* Test Item Value Reference Range Comments POC-GLUCOSE METER (BEAKER) (test qgto=5397) 144 mg/dL 70-110 TESTED AT [address] [address] POCT-GLUCOSE [id number] 22:03:00* Test Item Value Reference Range Comments POC-GLUCOSE METER (BEAKER) (test resf=8338) 149 mg/dL 70-110 TESTED AT [address] [address] CALCIUM, [id number] 21:18:00* Test Item Value Reference Range Comments CALCIUM IONIZED (BEAKER) (test gzoq=820) 1.18 mmol/L 1.12-1.27 PH, BLOOD (BEAKER) (test yejs=5618) 7.31 BLOOD GAS, [id number] 21:18:00* Test Item Value Reference Range Comments PH ARTERIAL (BEAKER) (test cgyo=915) 7.31 7.35-7.45 PCO2 ARTERIAL (BEAKER) (test nrif=542) 51 mmHg 35-45 PO2 ARTERIAL (BEAKER) (test mruq=560) 184 mmHg 80-90 O2 SATURATION ARTERIAL (BEAKER) (test mbkx=726) 99.1 % 96.0-97.0 HCO3 ARTERIAL (BEAKER) (test arya=719) 25 mmol/L 21-29 BASE EXCESS ARTERIAL (BEAKER) (test iwhg=022) -1.4 mmol/L -2.0-3.0 PATIENT TEMPERATURE (BEAKER) (test rjug=2915) 38.2 C FIO2 (BEAKER) (test vpqt=3098) 36.0 % HGB/HCT (H&H) - STAT [id number] 21:18:00* Test Item Value Reference Range Comments HEMOGLOBIN (BEAKER) (test kmpj=775) 9.1 g/dL 12.0-15.0 HEMATOCRIT (BEAKER) (test bixu=234) 27.0 % 36.0-45.0 POCT-GLUCOSE [id number] 18:39:00* Test Item Value Reference Range Comments POC-GLUCOSE METER (BEAKER) (test dtrs=5737) 157 mg/dL 70-110 TESTED AT [place] [id number] [facility] [address] POCT-GLUCOSE [id number] 18:39:00* Test Item Value Reference Range Comments POC-GLUCOSE METER (BEAKER) (test psbp=3589) 133 mg/dL 70-110 TESTED AT [place] [id number] [facility] [address] THROMBOELASTOGRAPH (TEG)2016-11-03 18:36:00* Test Item Value Reference Range Comments TEG ACTIVATED CLOTTING TIME (BEAKER) (test xgev=8860) 3.8 minutes 4.0-7.0 TEG FIBRINOGEN ACTIVITY (BEAKER) (test awdr=2968) 73.3 degrees 61.0-73.0 TEG PLT. AGGREGATION (BEAKER) (test yoqt=7574) 66.7 MM 55.0-65.0 TEG FIBRINOLYSIS (BEAKER) (test kqdb=1631) 0.0 % 0.0-5.0 TGH ACTIVATED CLOTTING TIME (BEAKER) (test watt=2543) 3.8 minutes 4.0-7.0 TGH FIBRINOGEN ACTIVITY (BEAKER) (test ksan=3091) 72.6 degrees 61.0-73.0 TGH PLT. AGGREGATION (BEAKER) (test neuw=7118) 66.7 MM 55.0-65.0 TGH FIBRINOLYSIS (BEAKER) (test kwgu=1997) 0.0 % 0.0-5.0 LACTIC ACID, ARTERIAL, WHOLE [id number] 18:26:00* Test Item Value Reference Range Comments LACTATE BLOOD ARTERIAL (2) (BEAKER) (test ukvk=4335) 2.4 mmol/L 0.5-2.2 Effective 08/14/2015: Units/Reference Range ChangeNew: 0.5-2.2 mmol/L Previous: 5 -20 mg/dLBLOOD GAS, [id number] 18:08:00* Test Item Value Reference Range Comments PH ARTERIAL (BEAKER) (test idcd=934) 7.32 7.35-7.45 PCO2 ARTERIAL (BEAKER) (test odog=264) 43 mmHg 35-45 PO2 ARTERIAL (BEAKER) (test oqdi=873) 163 mmHg 80-90 O2 SATURATION ARTERIAL (BEAKER) (test qeao=497) 98.9 % 96.0-97.0 HCO3 ARTERIAL (BEAKER) (test rust=160) 22 mmol/L 21-29 BASE EXCESS ARTERIAL (BEAKER) (test jkbx=169) -4.4 mmol/L -2.0-3.0 PATIENT TEMPERATURE (BEAKER) (test oyyf=4635) 37.1 C FIO2 (BEAKER) (test uvzu=9429) 40.0 % GLUCOSE-STAT [id number] 18:08:00* Test Item Value Reference Range Comments GLUCOSE RANDOM (BEAKER) (test jzos=319) 151 mg/dL 70-110 HGB/HCT (H&H) - STAT [id number] 18:08:00* Test Item Value Reference Range Comments HEMOGLOBIN (BEAKER) (test rctu=113) 11.1 g/dL 12.0-15.0 HEMATOCRIT (BEAKER) (test cgpb=151) 33.0 % 36.0-45.0 SODIUM NA-STAT [id number] 18:07:00* Test Item Value Reference Range Comments SODIUM (BEAKER) (test avno=772) 139 meq/L 135-148 POTASSIUM-STAT [id number] 18:07:00* Test Item Value Reference Range Comments POTASSIUM (BEAKER) (test yaxh=790) 4.2 meq/L 3.6-5.5 BASIC METABOLIC [id number] 17:05:00* Test Item Value Reference Range Comments SODIUM (BEAKER) (test tlwq=798) 140 meq/L 136-145 POTASSIUM (BEAKER) (test geew=369) 3.9 meq/L 3.5-5.1 Specimen slightly hemolyzed CHLORIDE (BEAKER) (test hnlr=085) 108 meq/L 98-107 CO2 (BEAKER) (test vhtd=951) 23 meq/L 22-29 BLOOD UREA NITROGEN (BEAKER) (test fzev=662) 7 mg/dL 7-21 CREATININE (BEAKER) (test nvqe=862) 0.68 mg/dL 0.57-1.25 Specimen slightly hemolyzed GLUCOSE RANDOM (BEAKER) (test cywk=780) 152 mg/dL 70-105 CALCIUM (BEAKER) (test opqo=895) 7.9 mg/dL 8.4-10.2 EGFR (BEAKER) (test rgxq=7098) 91 mL/min/1.73 sq m ESTIMATED GFR IS NOT ACCURATE CREATININE CLEARANCE IN PREDICTING GLOMERULAR FILTRATION RATE. ESTIMATED GFR IS NOT APPLICABLE FOR DIALYSIS PATIENTS. CBC W/PLT COUNT & AUTO [id number] 16:58:00* Test Item Value Reference Range Comments WHITE BLOOD CELL COUNT (BEAKER) (test iegc=146) 15.4 K/ L 3.5-10.5 RED BLOOD CELL COUNT (BEAKER) (test qvzn=149) 3.48 M/ L 3.93-5.22 HEMOGLOBIN (BEAKER) (test ihuo=014) 11.0 GM/DL 11.2-15.7 HEMATOCRIT (BEAKER) (test qcvw=180) 32.5 % 34.1-44.9 MEAN CORPUSCULAR VOLUME (BEAKER) (test ghyg=980) 93.4 fL 79.4-94.8 MEAN CORPUSCULAR HEMOGLOBIN (BEAKER) (test gvdx=874) 31.6 pg 25.6-32.2 MEAN CORPUSCULAR HEMOGLOBIN CONC (BEAKER) (test kplq=043) 33.8 GM/DL 32.2-35.5 RED CELL DISTRIBUTION WIDTH (BEAKER) (test uxzc=196) 13.5 % 11.7-14.4 PLATELET COUNT (BEAKER) (test zqvq=722) 142 K/CU MM 150-450 MEAN PLATELET VOLUME (BEAKER) (test twse=117) 12.4 fL 9.4-12.3 NUCLEATED RED BLOOD CELLS (BEAKER) (test mmxd=420) 0 /100 WBC 0-0 NEUTROPHILS RELATIVE PERCENT (BEAKER) (test bkug=899) 86 % LYMPHOCYTES RELATIVE PERCENT (BEAKER) (test douc=338) 12 % MONOCYTES RELATIVE PERCENT (BEAKER) (test vxuk=025) 1 % EOSINOPHILS RELATIVE PERCENT (BEAKER) (test llqv=795) 0 % BASOPHILS RELATIVE PERCENT (BEAKER) (test tbfj=930) 0 % NEUTROPHILS ABSOLUTE COUNT (BEAKER) (test ehnu=745) 13.15 K/ L 1.56-6.13 LYMPHOCYTES ABSOLUTE COUNT (BEAKER) (test ladk=539) 1.91 K/ L 1.18-3.74 MONOCYTES ABSOLUTE COUNT (BEAKER) (test znnq=711) 0.17 K/ L 0.24-0.36 EOSINOPHILS ABSOLUTE COUNT (BEAKER) (test ubhd=383) 0.03 K/ L 0.04-0.36 BASOPHILS ABSOLUTE COUNT (BEAKER) (test tfsw=444) 0.02 K/ L 0.01-0.08 IMMATURE GRANULOCYTES-RELATIVE PERCENT (BEAKER) (test qcwe=2932) 1 % 0-1 [id number] 16:34:00* Test Item Value Reference Range Comments MAGNESIUM (BEAKER) (test pfwj=908) 2.4 mg/dL 1.6-2.6 Specimen slightly hemolyzed [id number] 16:34:00* Test Item Value Reference Range Comments PHOSPHORUS (BEAKER) (test khzp=244) 3.1 mg/dL 2.3-4.7 Specimen slightly hemolyzed [id number] 16:26:00* Test Item Value Reference Range Comments FIBRINOGEN LEVEL (BEAKER) (test lpay=849) 234 mg/dl 225-434 [id number] 16:26:00* Test Item Value Reference Range Comments PARTIAL THROMBOPLASTIN TIME (BEAKER) (test jtxa=988) 27.5 seconds 22.5-36.0 PROTHROMBIN [id number] 16:25:00* Test Item Value Reference Range Comments PROTIME (BEAKER) (test nidr=284) 17.4 seconds 11.7-14.7 INR (BEAKER) (test xkok=488) 1.4 <=5.9 RECOMMENDED COUMADIN/WARFARIN INR THERAPY RANGESSTANDARD DOSE: 2.0 - 3.0 Inclu hilda: PROPHYLAXIS for venous thrombosis, systemic embolization; TREATMENT for cassi ous thrombosis and/or pulmonary embolus.HIGH RISK: Target INR is 2.5-3.5 for pat ients with mechanical heart valves.CBC (HEMOGRAM ONLY)2016-11-03 16:11:00* Test Item Value Reference Range Comments WHITE BLOOD CELL COUNT (BEAKER) (test xdrc=899) 15.4 K/ L 3.5-10.5 RED BLOOD CELL COUNT (BEAKER) (test fcyi=366) 3.48 M/ L 3.93-5.22 HEMOGLOBIN (BEAKER) (test afhj=407) 11.0 GM/DL 11.2-15.7 HEMATOCRIT (BEAKER) (test xplp=602) 32.5 % 34.1-44.9 MEAN CORPUSCULAR VOLUME (BEAKER) (test npka=123) 93.4 fL 79.4-94.8 MEAN CORPUSCULAR HEMOGLOBIN (BEAKER) (test rewz=499) 31.6 pg 25.6-32.2 MEAN CORPUSCULAR HEMOGLOBIN CONC (BEAKER) (test rovg=793) 33.8 GM/DL 32.2-35.5 RED CELL DISTRIBUTION WIDTH (BEAKER) (test hurt=233) 13.5 % 11.7-14.4 PLATELET COUNT (BEAKER) (test qyis=157) 142 K/CU MM 150-450 MEAN PLATELET VOLUME (BEAKER) (test gxgf=707) 12.4 fL 9.4-12.3 NUCLEATED RED BLOOD CELLS (BEAKER) (test elnw=562) 0 /100 WBC 0-0 BLOOD GAS, [id number] 16:06:00* Test Item Value Reference Range Comments PH ARTERIAL (BEAKER) (test lijc=201) 7.42 7.35-7.45 PCO2 ARTERIAL (BEAKER) (test imye=585) 35 mmHg 35-45 PO2 ARTERIAL (BEAKER) (test dxvf=483) 266 mmHg 80-90 O2 SATURATION ARTERIAL (BEAKER) (test qbtp=726) 99.6 % 96.0-97.0 HCO3 ARTERIAL (BEAKER) (test mirn=484) 22 mmol/L 21-29 BASE EXCESS ARTERIAL (BEAKER) (test efob=505) -1.8 mmol/L -2.0-3.0 PATIENT TEMPERATURE (BEAKER) (test lxzq=6084) 36.0 C FIO2 (BEAKER) (test gsbf=0208) 60.0 % GLUCOSE-STAT [id number] 16:06:00* Test Item Value Reference Range Comments GLUCOSE RANDOM (BEAKER) (test ukos=559) 152 mg/dL 70-110 HGB/HCT (H&H) - STAT [id number] 16:06:00* Test Item Value Reference Range Comments HEMOGLOBIN (BEAKER) (test bpqg=746) 11.6 g/dL 12.0-15.0 HEMATOCRIT (BEAKER) (test sgfg=715) 34.0 % 36.0-45.0 SODIUM NA-STAT [id number] 16:05:00* Test Item Value Reference Range Comments SODIUM (BEAKER) (test zxqn=621) 137 meq/L 135-148 POTASSIUM-STAT [id number] 16:05:00* Test Item Value Reference Range Comments POTASSIUM (BEAKER) (test uhdc=054) 3.7 meq/L 3.6-5.5 OXYGEN SATURATION, [id number] 15:56:00* Test Item Value Reference Range Comments O2 SATURATION (MEASURED) (BEAKER) (test czgb=2854) 75.2 % CALCIUM, [id number] 15:52:00* Test Item Value Reference Range Comments CALCIUM IONIZED (BEAKER) (test zzuf=413) 1.06 mmol/L 1.12-1.27 PH, BLOOD (BEAKER) (test nrem=3821) 7.41 SODIUM NA-STAT [id number] 14:43:00* Test Item Value Reference Range Comments SODIUM (BEAKER) (test whmf=655) 138 meq/L 135-148 POTASSIUM-STAT [id number] 14:43:00* Test Item Value Reference Range Comments POTASSIUM (BEAKER) (test grzn=075) 3.8 meq/L 3.6-5.5 BLOOD GAS, [id number] 14:43:00* Test Item Value Reference Range Comments PH ARTERIAL (BEAKER) (test mwwi=014) 7.38 7.35-7.45 PCO2 ARTERIAL (BEAKER) (test xabf=101) 36 mmHg 35-45 PO2 ARTERIAL (BEAKER) (test ohxq=413) 212 mmHg 80-90 O2 SATURATION ARTERIAL (BEAKER) (test drgb=936) 99.4 % 96.0-97.0 HCO3 ARTERIAL (BEAKER) (test fdzi=596) 21 mmol/L 21-29 BASE EXCESS ARTERIAL (BEAKER) (test lrkx=098) -4.2 mmol/L -2.0-3.0 PATIENT TEMPERATURE (BEAKER) (test znfp=7774) 35.9 C FIO2 (BEAKER) (test qecb=8909) 50.0 % GLUCOSE-STAT [id number] 14:43:00* Test Item Value Reference Range Comments GLUCOSE RANDOM (BEAKER) (test zmak=764) 152 mg/dL 70-110 HGB/HCT (H&H) - STAT [id number] 14:43:00* Test Item Value Reference Range Comments HEMOGLOBIN (BEAKER) (test nemw=200) 12.7 g/dL 12.0-15.0 HEMATOCRIT (BEAKER) (test csym=317) 37.0 % 36.0-45.0 CALCIUM, [id number] 14:43:00* Test Item Value Reference Range Comments CALCIUM IONIZED (BEAKER) (test zjhl=674) 1.08 mmol/L 1.12-1.27 PH, BLOOD (BEAKER) (test zmrt=1462) 7.36 [id number] 14:39:00* Test Item Value Reference Range Comments ACTIVATED CLOTTING TIME (BEAKER) (test sxbg=098) 109 sec TESTED AT [address] [address] [id number] 14:39:00* Test Item Value Reference Range Comments ACTIVATED CLOTTING TIME (BEAKER) (test abvg=706) 582 sec TESTED AT [address] [address] [id number] 14:39:00* Test Item Value Reference Range Comments ACTIVATED CLOTTING TIME (BEAKER) (test iymj=783) 758 sec TESTED AT [facility] [address] [facility] [address] [id number] 14:39:00* Test Item Value Reference Range Comments ACTIVATED CLOTTING TIME (BEAKER) (test kopg=152) 648 sec TESTED AT [facility] [address] [facility] [address] [id number] 14:21:00* Test Item Value Reference Range Comments FIBRINOGEN LEVEL (BEAKER) (test okjq=553) 203 mg/dl 225-434 [id number] 14:21:00* Test Item Value Reference Range Comments PARTIAL THROMBOPLASTIN TIME (BEAKER) (test fmjc=828) 34.3 seconds 22.5-36.0 PROTHROMBIN [id number] 14:20:00* Test Item Value Reference Range Comments PROTIME (BEAKER) (test nmct=043) 20.6 seconds 11.7-14.7 INR (BEAKER) (test hosx=015) 1.8 <=5.9 RECOMMENDED COUMADIN/WARFARIN INR THERAPY RANGESSTANDARD DOSE: 2.0 - 3.0 Inclu hilda: PROPHYLAXIS for venous thrombosis, systemic embolization; TREATMENT for cassi ous thrombosis and/or pulmonary embolus.HIGH RISK: Target INR is 2.5-3.5 for pat ients with mechanical heart valves.BLOOD GAS, [id number] 14:02:00* Test Item Value Reference Range Comments PH ARTERIAL (BEAKER) (test cdwg=178) 7.42 7.35-7.45 PCO2 ARTERIAL (BEAKER) (test lkkh=050) 35 mmHg 35-45 PO2 ARTERIAL (BEAKER) (test lubr=440) 554 mmHg 80-90 O2 SATURATION ARTERIAL (BEAKER) (test oxhc=690) 99.9 % 96.0-97.0 HCO3 ARTERIAL (BEAKER) (test tuda=693) 23 mmol/L 21-29 BASE EXCESS ARTERIAL (BEAKER) (test ssex=938) -1.7 mmol/L -2.0-3.0 PATIENT TEMPERATURE (BEAKER) (test zzki=7088) 35.8 C FIO2 (BEAKER) (test iujo=0997) 96.0 % SODIUM NA-STAT [id number] 14:02:00* Test Item Value Reference Range Comments SODIUM (BEAKER) (test fqje=696) 134 meq/L 135-148 GLUCOSE-STAT [id number] 14:02:00* Test Item Value Reference Range Comments GLUCOSE RANDOM (BEAKER) (test cuwu=232) 133 mg/dL 70-110 HGB/HCT (H&H) - STAT [id number] 14:02:00* Test Item Value Reference Range Comments HEMOGLOBIN (BEAKER) (test sflr=515) 8.9 g/dL 12.0-15.0 HEMATOCRIT (BEAKER) (test cciu=193) 26.0 % 36.0-45.0 POTASSIUM-STAT [id number] 14:01:00* Test Item Value Reference Range Comments POTASSIUM (BEAKER) (test qmkp=989) 3.9 meq/L 3.6-5.5 CALCIUM, [id number] 14:01:00* Test Item Value Reference Range Comments CALCIUM IONIZED (BEAKER) (test ttbm=150) 1.11 mmol/L 1.12-1.27 PH, BLOOD (BEAKER) (test vndu=1110) 7.40 BLOOD GAS, [id number] 13:19:00* Test Item Value Reference Range Comments PH ARTERIAL (BEAKER) (test hcsz=248) 7.40 7.35-7.45 PCO2 ARTERIAL (BEAKER) (test jtfs=809) 40 mmHg 35-45 PO2 ARTERIAL (BEAKER) (test pijx=919) 356 mmHg 80-90 O2 SATURATION ARTERIAL (BEAKER) (test zrhp=906) 99.8 % 96.0-97.0 HCO3 ARTERIAL (BEAKER) (test uubs=897) 25 mmol/L 21-29 BASE EXCESS ARTERIAL (BEAKER) (test kdma=279) -0.7 mmol/L -2.0-3.0 PATIENT TEMPERATURE (BEAKER) (test cinm=4113) 35.7 C FIO2 (BEAKER) (test dmbx=9674) 70.0 % SODIUM NA-STAT [id number] 13:19:00* Test Item Value Reference Range Comments SODIUM (BEAKER) (test bxrv=819) 134 meq/L 135-148 GLUCOSE-STAT [id number] 13:19:00* Test Item Value Reference Range Comments GLUCOSE RANDOM (BEAKER) (test ckno=334) 152 mg/dL 70-110 HGB/HCT (H&H) - STAT [id number] 13:19:00* Test Item Value Reference Range Comments HEMOGLOBIN (BEAKER) (test xams=079) 8.9 g/dL 12.0-15.0 HEMATOCRIT (BEAKER) (test wvpg=295) 26.0 % 36.0-45.0 POTASSIUM-STAT [id number] 13:18:00* Test Item Value Reference Range Comments POTASSIUM (BEAKER) (test siyn=843) 4.5 meq/L 3.6-5.5 BLOOD GAS, [id number] 13:02:00* Test Item Value Reference Range Comments PH ARTERIAL (BEAKER) (test vacj=807) 7.53 7.35-7.45 PCO2 ARTERIAL (BEAKER) (test yolj=467) 25 mmHg 35-45 PO2 ARTERIAL (BEAKER) (test clqk=002) 395 mmHg 80-90 O2 SATURATION ARTERIAL (BEAKER) (test xkxz=524) 99.8 % 96.0-97.0 HCO3 ARTERIAL (BEAKER) (test gzql=057) 23 mmol/L 21-29 BASE EXCESS ARTERIAL (BEAKER) (test gaqp=994) -2.1 mmol/L -2.0-3.0 PATIENT TEMPERATURE (BEAKER) (test rbeh=8710) 26.0 C FIO2 (BEAKER) (test zgap=8737) 70.0 % SODIUM NA-STAT [id number] 13:02:00* Test Item Value Reference Range Comments SODIUM (BEAKER) (test vvsk=450) 132 meq/L 135-148 GLUCOSE-STAT [id number] 13:02:00* Test Item Value Reference Range Comments GLUCOSE RANDOM (BEAKER) (test vlrr=612) 123 mg/dL 70-110 HGB/HCT (H&H) - STAT [id number] 13:02:00* Test Item Value Reference Range Comments HEMOGLOBIN (BEAKER) (test ugps=524) 7.5 g/dL 12.0-15.0 HEMATOCRIT (BEAKER) (test ulvr=406) 22.0 % 36.0-45.0 POTASSIUM-STAT [id number] 12:59:00* Test Item Value Reference Range Comments POTASSIUM (BEAKER) (test rxqb=781) 4.9 meq/L 3.6-5.5 GLUCOSE-STAT [id number] 12:09:00* Test Item Value Reference Range Comments GLUCOSE RANDOM (BEAKER) (test uhmk=576) 107 mg/dL 70-110 SODIUM NA-STAT [id number] 12:09:00* Test Item Value Reference Range Comments SODIUM (BEAKER) (test xnjy=140) 137 meq/L 135-148 POTASSIUM-STAT [id number] 12:09:00* Test Item Value Reference Range Comments POTASSIUM (BEAKER) (test stgg=531) 3.5 meq/L 3.6-5.5 HGB/HCT (H&H) - STAT [id number] 12:09:00* Test Item Value Reference Range Comments HEMOGLOBIN (BEAKER) (test uvwo=601) 12.8 g/dL 12.0-15.0 HEMATOCRIT (BEAKER) (test pnoc=593) 38.0 % 36.0-45.0 BLOOD GAS, [id number] 12:09:00* Test Item Value Reference Range Comments PH ARTERIAL (BEAKER) (test mqip=992) 7.48 7.35-7.45 PCO2 ARTERIAL (BEAKER) (test lzfs=090) 37 mmHg 35-45 PO2 ARTERIAL (BEAKER) (test qaci=220) 529 mmHg 80-90 O2 SATURATION ARTERIAL (BEAKER) (test fkps=610) 99.9 % 96.0-97.0 HCO3 ARTERIAL (BEAKER) (test xbir=678) 27 mmol/L 21-29 BASE EXCESS ARTERIAL (BEAKER) (test eahj=007) 3.5 mmol/L -2.0-3.0 PATIENT TEMPERATURE (BEAKER) (test nhtp=1289) 37.0 C FIO2 (BEAKER) (test issv=8785) 100.0 % SCREEN, [id number] 07:08:00* Test Item Value Reference Range Comments TEST URINE (BEAKER) (test aqjo=354) Negative HEMOGLOBIN [id number] 11:42:00* Test Item Value Reference Range Comments HEMOGLOBIN A1C (BEAKER) (test erbb=504) 5.5 % 4.3-6.1 BASIC METABOLIC [id number] 09:28:00* Test Item Value Reference Range Comments SODIUM (BEAKER) (test itji=835) 139 meq/L 136-145 POTASSIUM (BEAKER) (test pzyt=479) 4.1 meq/L 3.5-5.1 CHLORIDE (BEAKER) (test qldo=357) 105 meq/L 98-107 CO2 (BEAKER) (test qwvl=096) 28 meq/L 22-29 BLOOD UREA NITROGEN (BEAKER) (test vxrm=981) 9 mg/dL 7-21 CREATININE (BEAKER) (test treo=047) 0.75 mg/dL 0.57-1.25 GLUCOSE RANDOM (BEAKER) (test dsvr=413) 99 mg/dL 70-105 CALCIUM (BEAKER) (test ampn=871) 9.0 mg/dL 8.4-10.2 EGFR (BEAKER) (test ifgh=4947) 81 mL/min/1.73 sq m ESTIMATED GFR IS NOT ACCURATE CREATININE CLEARANCE IN PREDICTING GLOMERULAR FILTRATION RATE. ESTIMATED GFR IS NOT APPLICABLE FOR DIALYSIS PATIENTS. CBC W/PLT COUNT & AUTO [id number] 09:28:00* Test Item Value Reference Range Comments WHITE BLOOD CELL COUNT (BEAKER) (test inti=555) 7.0 K/ L 4.0-10.0 RED BLOOD CELL COUNT (BEAKER) (test bumw=606) 3.84 M/ L 4.00-5.00 HEMOGLOBIN (BEAKER) (test zaoj=505) 12.7 GM/DL 12.0-15.0 HEMATOCRIT (BEAKER) (test xggg=715) 37.1 % 36.0-45.0 MEAN CORPUSCULAR VOLUME (BEAKER) (test owyz=138) 96.5 fL 82.0-99.0 MEAN CORPUSCULAR HEMOGLOBIN (BEAKER) (test tlwu=348) 33.1 pg 27.0-33.0 MEAN CORPUSCULAR HEMOGLOBIN CONC (BEAKER) (test stzx=839) 34.2 GM/DL 32.0-36.0 RED CELL DISTRIBUTION WIDTH (BEAKER) (test gimk=056) 12.3 % 10.3-14.2 PLATELET COUNT (BEAKER) (test llvu=633) 233 K/CU MM 150-430 MEAN PLATELET VOLUME (BEAKER) (test afbz=259) 8.2 fL 6.5-10.5 NUCLEATED RED BLOOD CELLS (BEAKER) (test qgzr=507) 0 /100 WBC 0-0 NEUTROPHILS RELATIVE PERCENT (BEAKER) (test qqys=156) 66 % LYMPHOCYTES RELATIVE PERCENT (BEAKER) (test mpdk=772) 28 % MONOCYTES RELATIVE PERCENT (BEAKER) (test ywpy=028) 5 % EOSINOPHILS RELATIVE PERCENT (BEAKER) (test ohrl=178) 2 % BASOPHILS RELATIVE PERCENT (BEAKER) (test dokw=492) 0 % NEUTROPHILS ABSOLUTE COUNT (BEAKER) (test dwee=349) 4.57 K/ L 1.80-8.00 LYMPHOCYTES ABSOLUTE COUNT (BEAKER) (test odoo=676) 1.93 K/ L 1.48-4.50 MONOCYTES ABSOLUTE COUNT (BEAKER) (test sldw=572) 0.33 K/ L 0.00-1.30 EOSINOPHILS ABSOLUTE COUNT (BEAKER) (test apel=932) 0.13 K/ L 0.00-0.50 BASOPHILS ABSOLUTE COUNT (BEAKER) (test cxgv=282) 0.01 K/ L 0.00-0.20 0.00PROTHROMBIN [id number] 09:24:00* Test Item Value Reference Range Comments PROTIME (BEAKER) (test espu=064) 14.3 seconds 11.7-14.7 INR (BEAKER) (test lnfu=624) 1.1 <=5.9 RECOMMENDED COUMADIN/WARFARIN INR THERAPY RANGESSTANDARD DOSE: 2.0 - 3.0 Inclu hilda: PROPHYLAXIS for venous thrombosis, systemic embolization; TREATMENT for cassi ous thrombosis and/or pulmonary embolus.HIGH RISK: Target INR is 2.5-3.5 for pat ients with mechanical heart valves.
[2019-06-20] MEDS ORDERED: IBUPROFEN 400 MG TAB PO ONE (00:30)
== END 2019-06-20 02:08 | disposition home or self-care (01) ==
LOC: ER 23:57
DX: N93.9 Abnormal uterine and vaginal bleeding, unspecified (principal); Z79.01 Long term (current) use of anticoagulants
CPT/HCPCS: 99282

== ENCOUNTER 2021-04-30 08:26 | Emergency (ER) | payer OTHER ==
[~2021-04-30] VITALS: Ht 149.9 cm; Wt 109.1 kg
[2021-04-30] MEDS ORDERED: METOPROLOL SUCC50 MG PO (08:43)
[2021-04-30] MEDS ORDERED: HYDROCODON-ACE1 EA11 PO ×2 (08:50→08:59)
[2021-04-30] MEDS ORDERED: CLEOCIN HCL150 MG PO ×2 (08:50→08:59)
== END 2021-04-30 09:02 | disposition home or self-care (01) ==
LOC: FSED 08:30
DX: K08.89 Other specified disorders of teeth and supporting structures (principal); K02.9 Dental caries, unspecified; I10 Essential (primary) hypertension; Z95.4 Presence of other heart-valve replacement
CPT/HCPCS: 99282